=== PATIENT | male | born 1955 | race African-American/Black ===

== ENCOUNTER 2016-12-04 17:20 | Emergency (ER) | payer BC | END 2016-12-04 20:43 | disposition home or self-care (01) | LOC: ER 17:20 | DX: L02.214 Cutaneous abscess of groin (principal); E10.9 Type 1 diabetes mellitus without complications; Z79.82 Long term (current) use of aspirin; Z88.0 Allergy status to penicillin | CPT/HCPCS: 36415; 96361; 96365; 96375; J3370 ==

== ENCOUNTER 2016-12-05 09:31 | Emergency (ER) | payer BC | END 2016-12-05 11:44 | disposition home or self-care (01) | LOC: ER 09:31 | DX: Z48.01 Encounter for change or removal of surgical wound dressing (principal); E10.9 Type 1 diabetes mellitus without complications; I10 Essential (primary) hypertension; Z79.82 Long term (current) use of aspirin; Z79.899 Other long term (current) drug therapy; Z88.0 Allergy status to penicillin | CPT/HCPCS: 96365; 96375; J3370 ==